=== PATIENT | male | born 1965 | race Two or more races ===

== ENCOUNTER → 2020-11-25 | Outpatient (CLI) | payer BC ==
[2020-11-25 13:17] LABS: Basophils # (auto) 0.1 10 ^3/uL (0-0.2); Basophils % (auto) 0.6 % (0.0-2.0); Eosinophils # (auto) 0.2 10 ^3/uL (0-0.8); Hematocrit 42.4 % (41.0-53.0); Hemoglobin 14.1 g/dL (13.5-17.5); Lymphocytes % (auto) 21.7 % (10.0-50.0); Mean Corpuscular Hemoglobin 30.7 pg (28.0-32.0); Mean Corpuscular Hgb Conc. 33.2 g/dL (32.0-36.0); Mean Corpuscular Volume 92.3 fL (80.0-100.0); Monocytes # (auto) 0.8 10 ^3/uL (0-1.3); Monocytes % (auto) 8.7 % (0.0-12.0); Nucleated Red Blood Cells % 0.1 %; Platelet Count (auto) 236 10^3/uL (140-450); Red Blood Cells 4.59 10^6/uL (4.5-5.90); Red Cell Distribution Width 15.5 % (11.8-14.3)
[2020-11-25 14:10] LABS: Calcium 9.1 mg/dL (8.5-10.1); Potassium 4.2 mmol/L (3.5-5.1)
[2020-11-25 14:17] LABS: Albumin 3.4 g/dL (3.4-5.0); BUN/Creatinine Ratio 19.2; Bilirubin, Total 0.9 mg/dL (0.2-1.0); Total Protein 7.6 g/dL (6.4-8.2); Uric Acid 5.4 mg/dL (3.5-7.2)
== END | disposition home or self-care (01) ==
LOC: LAB 12:25
PROVIDERS: ATTEND Physician Assistant
DX: I10 Essential (primary) hypertension (principal); E11.9 Type 2 diabetes mellitus without complications; I48.20 Chronic atrial fibrillation, unspecified; E78.49 Other hyperlipidemia; R35.1 Nocturia
CPT/HCPCS: 36415; 80053; 80061; 82043; 83036; 84153; 84550; 85025

== ENCOUNTER → 2021-03-03 | Outpatient (CLI) | payer BC | END | disposition home or self-care (01) | LOC: XYW 08:23 | PROVIDERS: ATTEND Internal Medicine | DX: I51.7 Cardiomegaly (principal); R00.1 Bradycardia, unspecified; I48.20 Chronic atrial fibrillation, unspecified | CPT/HCPCS: 93306 ==

== ENCOUNTER 2022-06-05 11:09 | Inpatient (IN) | payer BC ==
[~2022-06-05] VITALS: Ht 180.3 cm; Wt 166.3 kg
[2022-06-05 13:12] LABS: Basophils # (auto) 0.1 10 ^3/uL (0-0.2); Basophils % (auto) 0.8 % (0.0-2.0); Eosinophils # (auto) 0.3 10 ^3/uL (0-0.8); Eosinophils % (auto) 2.3 % (0.0-7.0); Hematocrit 44.7 % (41.0-53.0); Hemoglobin 14.7 g/dL (13.5-17.5); Lymphocytes # (auto) 1.6 10 ^3/uL (0.4-5.4); Lymphocytes % (auto) 14.2 % (10.0-50.0); Mean Corpuscular Hemoglobin 30.3 pg (28.0-32.0); Mean Corpuscular Hgb Conc. 32.9 g/dL (32.0-36.0); Mean Corpuscular Volume 92.2 fL (80.0-100.0); Monocytes # (auto) 1.2 10 ^3/uL (0-1.3); Monocytes % (auto) 10.4 % (0.0-12.0); Neutrophils # (auto) 8.2 10 ^3/uL (1.6-8.6); Neutrophils % (auto) 72.3 % (37.0-80.0); Nucleated Red Blood Cells % 0.1 %; Red Blood Cells 4.85 10^6/uL (4.5-5.90); Red Cell Distribution Width 15.9 % (11.8-14.3); White Blood Cell 11.3 10^3/uL (4.4-10.8)
[2022-06-05 13:29] LABS: Albumin 3.1 g/dL (3.4-5.0); BUN/Creatinine Ratio 14.3; Calcium 8.7 mg/dL (8.5-10.1); INR 1.56 (0.9-1.15); Partial Thromboplastin Time 37.4 sec (24.6-33.4); Potassium 4.4 mmol/L (3.5-5.1)
[2022-06-05 13:32] LABS: Bilirubin, Total 0.7 mg/dL (0.2-1.0); Total Protein 8.5 g/dL (6.4-8.2)
[2022-06-05] MEDS ORDERED: methylPREDNISolone SOD SUCC 125 MG/2 ML VL IV ONE (14:15)
[2022-06-05] MEDS ORDERED: cefTRIAXone 1GM/50ML D5W 50 ML IV ONE (14:15)
[2022-06-05] MEDS ORDERED: MORPHINE SULFATE INJ 2 MG/ml SYRG IV PRN ×2 (14:15)
[2022-06-05] MEDS ORDERED: ACETAMINOPHEN 325 MG TAB PO PRN (14:15)
[2022-06-05] MEDS ORDERED: NITROGLYCERIN 0.4 MG SL TAB SL PRN (14:15)
[2022-06-05] MEDS ORDERED: CLINDAMYCIN 600MG IV 50 ML IV ONE (14:15)
[2022-06-05] MEDS ORDERED: METOCLOPRAMIDE HCL 5MG/ml INJ 2ml VIAL IV ONE (14:45)
[2022-06-05] MEDS ORDERED: diphenhdrAMINE HCL 50 MG/1 ML VL IV PRN (14:45)
[2022-06-05] MEDS: SODIUM CHLORIDE 0.9% 1,000 ML IV SCH ×2 (14:45→18:25)
[2022-06-05] MEDS ORDERED: BUME1TAB3 PO (14:52)
[2022-06-05] MEDS ORDERED: RIV20T PO (14:52)
[2022-06-05] MEDS ORDERED: ATEN50TA PO (14:52)
[2022-06-05] MEDS ORDERED: AMLO-496 PO (14:52)
[2022-06-05] MEDS ORDERED: ESCI-34 PO (14:52)
[2022-06-05] MEDS ORDERED: ATOR40TA52 PO (14:52)
[2022-06-05] MEDS ORDERED: LISI-716 PO (14:52)
[2022-06-05 15:22] LABS: Cholesterol 104 mg/dL (< 200)
[2022-06-05 15:25] LABS: HDL Cholesterol 40 mg/dL (40-59); LDL Cholesterol 55 mg/dL (< 100); Triglycerides 116 mg/dL (< 150)
[2022-06-05] MEDS ORDERED: RIVAROXABAN 20 MG TAB PO SCH (18:00)
[2022-06-05] MEDS: BUMETANIDE 1 MG TAB PO SCH (18:25)
[2022-06-05 21:33] LABS: Urine Bacteria FEW /hpf (None Seen); Urine Blood TRACE /uL (Negative); Urine Hyaline Cast FEW /lpf (0 - 2); Urine Specific Gravity 1.008 (1.001-1.035); Urine WBC 1 /hpf (0 - 3)
[2022-06-05 22:00] VITALS: BP 130/61
[2022-06-05 22:00] LABS: Amphetamine Screen, Urine NEGATIVE (NEGATIVE); Barbiturate Scree,Urine NEGATIVE (NEGATIVE); Benzodiazephine Screen, Urine POSITIVE (NEGATIVE); Cannabinoid Screen, Urine NEGATIVE (NEGATIVE); Cocaine Screen, Urine NEGATIVE (NEGATIVE); Opiate Scree,Urine NEGATIVE (NEGATIVE); Phencyclidine Screen, Urine NEGATIVE (NEGATIVE)
[2022-06-05 22:34] VITALS: BP 130/61
[2022-06-05] MEDS: CLINDAMYCIN 600MG IV 50 ML IV SCH (23:38)
[2022-06-05] MEDS: ATORVASTATIN 20 MG TAB PO SCH (23:38)
[2022-06-05] MEDS: ATENOLOL 50 MG TAB PO SCH (23:45)
[2022-06-06] VITALS (7 sets, daily range): BP systolic 110–139; BP diastolic 52–78
[2022-06-06] MEDS: CLINDAMYCIN 600MG IV 50 ML IV SCH (05:10)
[2022-06-06] MEDS: BUMETANIDE 1 MG TAB PO SCH (05:35)
[2022-06-06 06:22] LABS: Basophils # (auto) 0 10 ^3/uL (0-0.2); Basophils % (auto) 0.1 % (0.0-2.0); Eosinophils # (auto) 0 10 ^3/uL (0-0.8); Hematocrit 44.3 % (41.0-53.0); Hemoglobin 14.7 g/dL (13.5-17.5); Lymphocytes # (auto) 0.6 10 ^3/uL (0.4-5.4); Mean Corpuscular Hemoglobin 30.8 pg (28.0-32.0); Mean Corpuscular Hgb Conc. 33.3 g/dL (32.0-36.0); Mean Corpuscular Volume 92.5 fL (80.0-100.0); Monocytes # (auto) 0.1 10 ^3/uL (0-1.3); Monocytes % (auto) 1.8 % (0.0-12.0); Neutrophils # (auto) 7.6 10 ^3/uL (1.6-8.6); Neutrophils % (auto) 91.1 % (37.0-80.0); Red Blood Cells 4.79 10^6/uL (4.5-5.90); Red Cell Distribution Width 15.8 % (11.8-14.3); White Blood Cell 8.3 10^3/uL (4.4-10.8)
[2022-06-06] MEDS: SODIUM CHLORIDE 0.9% 1,000 ML IV SCH (07:11)
[2022-06-06] MEDS ORDERED: cefTRIAXone 1GM/50ML D5W 50 ML IV SCH (09:00)
[2022-06-06] MEDS ORDERED: LISINOPRIL 10 MG TAB PO SCH (10:00)
[2022-06-06] MEDS ORDERED: PATIENTS OWN MEDICATION (Escitalopram Oxalate 1 TAB) PO SCH (10:00)
[2022-06-06] MEDS: ATENOLOL 50 MG TAB PO SCH ×2 (10:30→22:25)
[2022-06-06] MEDS: amLODIPine BESYLATE 5 MG TAB PO SCH (10:31)
[2022-06-06] MEDS: CITALOPRAM HYDROBR 20 MG TAB PO SCH (10:31)
[2022-06-06] MEDS ORDERED: DEXTROSE (50%) 50ML SYRG IV PRN (14:15)
[2022-06-06] MEDS ORDERED: VANCOMYCIN PER PHARMACY 0 MG IV SCH (14:15)
[2022-06-06] MEDS: VANCOMYCIN 1GM/250ML 250 ML IV SCH (15:13)
[2022-06-06] MEDS: HYDROcodone-ACET 5/325MG TAB PO PRN (15:40)
[2022-06-06] MEDS: ACCU-CHEK COMFORT CURVE STRIP VI SCH ×2 (17:45→22:25)
[2022-06-06] MEDS: InsuLIN REG 1unit/0.01ml Soln (100units/ml) SC SCH ×2 (17:50→22:26)
[2022-06-06] MEDS: ATORVASTATIN 20 MG TAB PO SCH (22:25)
[2022-06-07] MEDS: VANCOMYCIN 1GM/250ML 250 ML IV SCH ×2 (01:23→11:28)
[2022-06-07 03:08] LABS: Basophils # (auto) 0.1 10 ^3/uL (0-0.2); Basophils % (auto) 0.5 % (0.0-2.0); Eosinophils # (auto) 0 10 ^3/uL (0-0.8); Eosinophils % (auto) 0.1 % (0.0-7.0); Hematocrit 43.1 % (41.0-53.0); Hemoglobin 13.7 g/dL (13.5-17.5); Lymphocytes # (auto) 1.8 10 ^3/uL (0.4-5.4); Lymphocytes % (auto) 8.7 % (10.0-50.0); Mean Corpuscular Hemoglobin 29.6 pg (28.0-32.0); Mean Corpuscular Hgb Conc. 31.9 g/dL (32.0-36.0); Monocytes # (auto) 1.7 10 ^3/uL (0-1.3); Neutrophils # (auto) 17.1 10 ^3/uL (1.6-8.6); Neutrophils % (auto) 82.7 % (37.0-80.0); Red Blood Cells 4.63 10^6/uL (4.5-5.90); White Blood Cell 20.6 10^3/uL (4.4-10.8)
[2022-06-07 03:28] LABS: INR 1.3 (0.9-1.15); Partial Thromboplastin Time 27.2 sec (24.6-33.4)
[2022-06-07 05:00] VITALS: BP 117/69
[2022-06-07 06:19] LABS: BUN/Creatinine Ratio 31.3; Calcium 8.5 mg/dL (8.5-10.1); Potassium 4.8 mmol/L (3.5-5.1)
[2022-06-07] MEDS: InsuLIN REG 1unit/0.01ml Soln (100units/ml) SC SCH ×4 (06:19→22:00)
[2022-06-07] MEDS: ACCU-CHEK COMFORT CURVE STRIP VI SCH ×4 (06:19→22:01)
[2022-06-07 08:00] VITALS: BP 107/80
[2022-06-07] MEDS ORDERED: LIDOCAINE 1%HCL (LOCAL ANESTH) 10 ML MDV ONE (08:13)
[2022-06-07] MEDS ORDERED: BUPIVACAINE W/ EPINEPH 0.25% INJ 50ML MDV ONE (08:13)
[2022-06-07] MEDS ORDERED: fentaNYL CITRATE 100 MCG/2 ML VL ONE (08:28)
[2022-06-07] MEDS ORDERED: ceFAZolin 1GM/50ML 100 ML IV ONE (08:31)
[2022-06-07] MEDS ORDERED: SUCCINYLCHOLINE CHLORIDE 20 MG/ML 10ML VIAL IV ONE (08:35)
[2022-06-07] MEDS ORDERED: LIDOCAINE 1% (LOCAL ANESTH.) PF 5ml SDV ONE (08:38)
[2022-06-07] MEDS ORDERED: PROPOFOL 10 MG/ML 20 ML IV ONE (08:38)
[2022-06-07] MEDS ORDERED: ONDANSETRON HCL 4 MG/2 ML VIAL ONE (08:38)
[2022-06-07] MEDS ORDERED: MIDAZOLAM HCL 2MG/2ML 2ml VIAL (1mg/ml) ONE ×2 (08:38→08:46)
[2022-06-07] MEDS ORDERED: ONDANSETRON HCL 4 MG/2 ML VIAL IV PRN (09:30)
[2022-06-07] MEDS ORDERED: HYDROmorphone HCL 2 MG/ML VL/or syr IV PRN (09:30)
[2022-06-07] MEDS: ATENOLOL 50 MG TAB PO SCH ×2 (11:36→22:00)
[2022-06-07] MEDS: amLODIPine BESYLATE 5 MG TAB PO SCH (11:37)
[2022-06-07] MEDS: CITALOPRAM HYDROBR 20 MG TAB PO SCH (11:37)
[2022-06-07] MEDS ORDERED: cefTRIAXone 1GM/50ML D5W 50 ML IV ONE (11:45)
[2022-06-07 12:00] VITALS: BP 127/75
[2022-06-07 13:20] LABS: Hepatitis C Antibody Negative (Negative)
[2022-06-07 16:00] VITALS: BP 101/64
[2022-06-07 20:00] VITALS: BP 125/62
[2022-06-07 22:00] VITALS: BP 125/62
[2022-06-07] MEDS: ATORVASTATIN 20 MG TAB PO SCH (22:00)
[2022-06-08 05:23] VITALS: BP 134/95
[2022-06-08] MEDS: ACCU-CHEK COMFORT CURVE STRIP VI SCH ×4 (06:28→22:16)
[2022-06-08 06:31] LABS: Calcium 8.3 mg/dL (8.5-10.1)
[2022-06-08 06:32] LABS: BUN/Creatinine Ratio 27.3; Basophils # (auto) 0 10 ^3/uL (0-0.2); Basophils % (auto) 0.4 % (0.0-2.0); Eosinophils # (auto) 0.1 10 ^3/uL (0-0.8); Eosinophils % (auto) 0.6 % (0.0-7.0); Hematocrit 40.4 % (41.0-53.0); Hemoglobin 13.4 g/dL (13.5-17.5); Lymphocytes # (auto) 2.2 10 ^3/uL (0.4-5.4); Lymphocytes % (auto) 21.8 % (10.0-50.0); Mean Corpuscular Hgb Conc. 33.3 g/dL (32.0-36.0); Mean Corpuscular Volume 93.1 fL (80.0-100.0); Monocytes % (auto) 10.2 % (0.0-12.0); Neutrophils # (auto) 6.8 10 ^3/uL (1.6-8.6); Nucleated Red Blood Cells % 0.1 %; Red Blood Cells 4.34 10^6/uL (4.5-5.90); Red Cell Distribution Width 15.8 % (11.8-14.3); White Blood Cell 10.2 10^3/uL (4.4-10.8)
[2022-06-08] MEDS: InsuLIN REG 1unit/0.01ml Soln (100units/ml) SC SCH ×4 (06:32→22:13)
[2022-06-08 08:00] VITALS: BP 123/75
[2022-06-08 08:10] VITALS: BP 123/75
[2022-06-08] MEDS: ATENOLOL 50 MG TAB PO SCH (10:00)
[2022-06-08] MEDS: cefTRIAXone 1GM/50ML D5W 50 ML IV SCH (10:11)
[2022-06-08] MEDS: CITALOPRAM HYDROBR 20 MG TAB PO SCH (10:12)
[2022-06-08 12:00] VITALS: BP 113/62
[2022-06-08 16:00] VITALS: BP 105/55
[2022-06-08] MEDS: VANCOMYCIN 1GM/250ML 250 ML IV SCH (17:36)
[2022-06-08] MEDS: HYDROcodone-ACET 5/325MG TAB PO PRN (17:48)
[2022-06-08 22:00] VITALS: BP 127/76
[2022-06-08] MEDS: ATORVASTATIN 20 MG TAB PO SCH (22:14)
[2022-06-08] MEDS: ATENOLOL 25 MG TAB PO SCH (22:16)
[2022-06-09 05:00] VITALS: BP_SYST 74
[2022-06-09] MEDS: InsuLIN REG 1unit/0.01ml Soln (100units/ml) SC SCH ×4 (05:26→22:00)
[2022-06-09] MEDS: ACCU-CHEK COMFORT CURVE STRIP VI SCH ×4 (05:26→22:00)
[2022-06-09] MEDS: VANCOMYCIN 1GM/250ML 250 ML IV SCH (08:05)
[2022-06-09] MEDS: HYDROcodone-ACET 5/325MG TAB PO PRN (08:16)
[2022-06-09 08:34] VITALS: BP 126/75
[2022-06-09] MEDS: CITALOPRAM HYDROBR 20 MG TAB PO SCH (09:28)
[2022-06-09] MEDS: amLODIPine BESYLATE 5 MG TAB PO SCH (09:30)
[2022-06-09] MEDS: ATENOLOL 25 MG TAB PO SCH ×2 (09:31→22:00)
[2022-06-09] MEDS: cefTRIAXone 1GM/50ML D5W 50 ML IV SCH (11:52)
[2022-06-09 13:00] VITALS: BP 119/76
[2022-06-09 17:00] VITALS: BP 128/67
[2022-06-09 20:00] VITALS: BP 126/75
[2022-06-09 22:00] VITALS: BP 124/77
[2022-06-09] MEDS: ATORVASTATIN 20 MG TAB PO SCH (22:00)
[2022-06-10] MEDS: VANCOMYCIN 1GM/250ML 250 ML IV SCH ×2 (01:37→14:10)
[2022-06-10 05:00] VITALS: BP 144/79
[2022-06-10] MEDS: InsuLIN REG 1unit/0.01ml Soln (100units/ml) SC SCH ×3 (06:15→17:00)
[2022-06-10] MEDS: ACCU-CHEK COMFORT CURVE STRIP VI SCH ×3 (06:16→17:23)
[2022-06-10 09:00] VITALS: BP 150/81
[2022-06-10] MEDS: amLODIPine BESYLATE 5 MG TAB PO SCH (10:00)
[2022-06-10] MEDS: ATENOLOL 25 MG TAB PO SCH (10:00)
[2022-06-10] MEDS: CITALOPRAM HYDROBR 20 MG TAB PO SCH (10:00)
[2022-06-10] MEDS: cefTRIAXone 1GM/50ML D5W 50 ML IV SCH (11:23)
[2022-06-10] MEDS ORDERED: ALPR2TAB2 PO (11:41)
[2022-06-10] MEDS ORDERED: IOHEXOL 350 MG/ML 100ML IJ ONE (12:59)
[2022-06-10] MEDS ORDERED: ASPirin 81 mg TAB PO ONE ×2 (15:00)
[2022-06-10] MEDS ORDERED: SODIUM CHLORIDE 0.9% 1,000 ML IV SCH (15:45)
[2022-06-10] MEDS ORDERED: ASPirin 81 mg TAB PO SCH (16:00)
[2022-06-10] MEDS ORDERED: LABETALOL HCL 5 MG/ML 4ML SYRINGE IV PRN (16:15)
[2022-06-10] MEDS ORDERED: hydrALAZINE HCL 20 MG/ML VL IV PRN (16:45)
[2022-06-10 17:00] VITALS: BP 148/71
[2022-06-11] MEDS ORDERED: VANCOMYCIN 1GM/250ML 250 ML IV SCH (02:00)
[2022-06-11] MEDS ORDERED: ASPirin 81 mg TAB PO SCH (10:00)
== END 2022-06-10 21:18 | disposition short-term general hospital (02) | DRG 871 ==
LOC: ER 11:09 → OVERFLOW 14:43 → WEST WING 22:00 → TELE-WESTW 06-10 07:43
PROVIDERS: ADMIT Registered Nurse; ATTEND Internal Medicine
PROC: 0HB7XZX Excision of Abdomen Skin, External Approach, Diagnostic (ICD-10-PCS; 2022-06-07)
PROC: 0HB7XZX Excision of Abdomen Skin, External Approach, Diagnostic (ICD-10-PCS; principal; 2022-06-07 08:34)
DX: A41.9 Sepsis, unspecified organism (principal); I63.511 Cerebral infarction due to unspecified occlusion or stenosis of right middle cerebral artery; D69.0 Allergic purpura; D68.69 Other thrombophilia; R41.4 Neurologic neglect syndrome; G81.94 Hemiplegia, unspecified affecting left nondominant side; L03.116 Cellulitis of left lower limb; L03.115 Cellulitis of right lower limb; Z68.43 Body mass index [BMI] 50.0-59.9, adult; E78.5 Hyperlipidemia, unspecified; E66.01 Morbid (severe) obesity due to excess calories; I48.91 Unspecified atrial fibrillation; E11.9 Type 2 diabetes mellitus without complications; Z20.822 Contact with and (suspected) exposure to COVID-19; I10 Essential (primary) hypertension; H53.462 Homonymous bilateral field defects, left side; F17.200 Nicotine dependence, unspecified, uncomplicated; G47.30 Sleep apnea, unspecified; Z82.49 Family history of ischemic heart disease and other diseases of the circulatory system; Z79.899 Other long term (current) drug therapy; Z79.82 Long term (current) use of aspirin; Z82.3 Family history of stroke; Z83.3 Family history of diabetes mellitus; Z79.01 Long term (current) use of anticoagulants
CPT/HCPCS: 36415; 70450; 70496; 71045; 73020; 73090; 73560; 80048; 80053; 80061; 80202; 80307; 81001; 82150; 82565; 82784; 82962; 83036; 83520; 83690; 84443; 85025; 85610; 85652; 85730; 86141; 86160; 86256; 86704; 86803; 86850; 86900; 86901; 87040; 87077; 87186; 87340; 87426; 96365; 96366; 96368; 96375; G0378; J0330; J0690; J0696; J1815; J2001; J2250; J2405; J2704; J3490

== ENCOUNTER 2022-06-20 16:40 | Emergency (ER) | payer BC ==
[~2022-06-20] VITALS: Ht 177.8 cm; Wt 136.0 kg
[~2022-06-20 16:40] MED LIST: ALPR2TAB2 PO; AMLO-496 PO; ATEN50TA PO; ATOR40TA52 PO; BUME1TAB3 PO; ESCI-34 PO; LISI-716 PO; RIV20T PO
[2022-06-20 18:20] LABS: Basophils # (auto) 0.1 10 ^3/uL (0-0.2); Basophils % (auto) 0.4 % (0.0-2.0); Eosinophils # (auto) 0.1 10 ^3/uL (0-0.8); Eosinophils % (auto) 0.5 % (0.0-7.0); Hematocrit 45.8 % (41.0-53.0); Hemoglobin 14.8 g/dL (13.5-17.5); Lymphocytes # (auto) 2.1 10 ^3/uL (0.4-5.4); Mean Corpuscular Hemoglobin 30.3 pg (28.0-32.0); Mean Corpuscular Hgb Conc. 32.4 g/dL (32.0-36.0); Mean Corpuscular Volume 93.5 fL (80.0-100.0); Monocytes # (auto) 1.3 10 ^3/uL (0-1.3); Monocytes % (auto) 10.4 % (0.0-12.0); Neutrophils % (auto) 71.7 % (37.0-80.0); Nucleated Red Blood Cells % 0.1 %; Red Cell Distribution Width 15.7 % (11.8-14.3); White Blood Cell 12.6 10^3/uL (4.4-10.8)
[2022-06-20 18:38] LABS: Albumin 2.9 g/dL (3.4-5.0); Calcium 9.3 mg/dL (8.5-10.1); Potassium 3.9 mmol/L (3.5-5.1)
[2022-06-20 18:43] LABS: BUN/Creatinine Ratio 23.9; Total Protein 7.4 g/dL (6.4-8.2)
[2022-06-21 15:23] VITALS: BP 165/95
== END 2022-06-21 19:08 | disposition home or self-care (01) ==
LOC: ER 16:40 → EDBD 16:40 → ER 06-21 15:43
DX: I10 Essential (primary) hypertension (principal); I48.91 Unspecified atrial fibrillation; E11.9 Type 2 diabetes mellitus without complications; M25.532 Pain in left wrist; M25.512 Pain in left shoulder; Z79.899 Other long term (current) drug therapy
CPT/HCPCS: 36415; 71045; 73030; 73100; 80053; 84484; 85025; 93005; 93971

== ENCOUNTER 2022-06-25 11:06 | Inpatient (IN) | payer BC ==
[~2022-06-25] VITALS: Ht 172.7 cm; Wt 151.6 kg
[2022-06-25] MEDS ORDERED: SODIUM CHLORIDE 0.9% 500 ML IV ONE (11:30)
[2022-06-25 11:59] LABS: Basophils # (auto) 0.2 10 ^3/uL (0-0.2); Basophils % (auto) 1.2 % (0.0-2.0); Eosinophils # (auto) 0.7 10 ^3/uL (0-0.8); Hematocrit 40.7 % (41.0-53.0); Hemoglobin 13.2 g/dL (13.5-17.5); Mean Corpuscular Hgb Conc. 32.5 g/dL (32.0-36.0); Mean Corpuscular Volume 92.3 fL (80.0-100.0); Monocytes # (auto) 1.9 10 ^3/uL (0-1.3); Monocytes % (auto) 14.1 % (0.0-12.0); Neutrophils # (auto) 8.5 10 ^3/uL (1.6-8.6); Neutrophils % (auto) 64.7 % (37.0-80.0); Red Blood Cells 4.41 10^6/uL (4.5-5.90); Red Cell Distribution Width 15.5 % (11.8-14.3); White Blood Cell 13.2 10^3/uL (4.4-10.8)
[2022-06-25 12:35] LABS: Albumin 2.2 g/dL (3.4-5.0); BUN/Creatinine Ratio 17.3; Bilirubin, Total 0.9 mg/dL (0.2-1.0); Calcium 8.7 mg/dL (8.5-10.1); Magnesium 2.1 mg/dL (1.6-2.6); Potassium 4.1 mmol/L (3.5-5.1); Total Protein 6.7 g/dL (6.4-8.2)
[2022-06-26 20:16] LABS: Urine Bacteria NONE SEEN /hpf (None Seen); Urine Blood 2+ /uL (Negative); Urine Mucus FEW (None Seen); Urine WBC 20 /hpf (0 - 3)
[2022-06-27] MEDS ORDERED: HYDROcodone-ACET 5/325MG TAB PO PRN (17:15)
[2022-06-27] MEDS ORDERED: NITROGLYCERIN 0.4 MG SL TAB SL PRN (17:15)
[2022-06-27] MEDS ORDERED: DEXTROSE (50%) 50ML SYRG IV PRN (17:15)
[2022-06-27] MEDS ORDERED: MORPHINE SULFATE INJ 2 MG/ml SYRG IV PRN ×2 (17:15)
[2022-06-27] MEDS ORDERED: ONDANSETRON HCL 4 MG/2 ML VIAL IV PRN (17:15)
[2022-06-27] MEDS ORDERED: ACETAMINOPHEN 500 MG TAB PO PRN (17:15)
[2022-06-27 22:00] VITALS: BP 114/70
[2022-06-27] MEDS ORDERED: ATORVASTATIN 20 MG TAB PO SCH (22:00)
[2022-06-27] MEDS: ACCU-CHEK COMFORT CURVE STRIP VI SCH (22:12)
[2022-06-27] MEDS: InsuLIN REG 1unit/0.01ml Soln (100units/ml) SC SCH (22:12)
[2022-06-27] MEDS: ATENOLOL 25 MG TAB PO SCH (22:14)
[2022-06-28] VITALS (8 sets, daily range): BP systolic 98–163; BP diastolic 55–94
[2022-06-28] MEDS: InsuLIN REG 1unit/0.01ml Soln (100units/ml) SC SCH ×2 (06:26→11:55)
[2022-06-28] MEDS: ACCU-CHEK COMFORT CURVE STRIP VI SCH ×2 (06:26→11:55)
[2022-06-28 06:38] LABS: Basophils # (auto) 0.1 10 ^3/uL (0-0.2); Eosinophils # (auto) 0.3 10 ^3/uL (0-0.8); Eosinophils % (auto) 2.8 % (0.0-7.0); Hematocrit 43.8 % (41.0-53.0); Hemoglobin 13.8 g/dL (13.5-17.5); Lymphocytes # (auto) 1.8 10 ^3/uL (0.4-5.4); Lymphocytes % (auto) 15.2 % (10.0-50.0); Mean Corpuscular Hemoglobin 29.1 pg (28.0-32.0); Mean Corpuscular Hgb Conc. 31.6 g/dL (32.0-36.0); Monocytes # (auto) 1.4 10 ^3/uL (0-1.3); Monocytes % (auto) 11.9 % (0.0-12.0); Neutrophils # (auto) 8.3 10 ^3/uL (1.6-8.6); Neutrophils % (auto) 69.1 % (37.0-80.0); Red Blood Cells 4.76 10^6/uL (4.5-5.90); Red Cell Distribution Width 15.6 % (11.8-14.3); White Blood Cell 11.9 10^3/uL (4.4-10.8)
[2022-06-28 07:14] LABS: Albumin 2.5 g/dL (3.4-5.0); Potassium 4.2 mmol/L (3.5-5.1)
[2022-06-28 07:17] LABS: BUN/Creatinine Ratio 17.7
[2022-06-28 07:20] LABS: Bilirubin, Total 0.9 mg/dL (0.2-1.0); Total Protein 7.4 g/dL (6.4-8.2)
[2022-06-28] MEDS ORDERED: ASPirin 81 mg TAB PO SCH (10:00)
[2022-06-28] MEDS ORDERED: LISINOPRIL 10 MG TAB PO SCH (10:00)
[2022-06-28] MEDS: ATENOLOL 25 MG TAB PO SCH (10:29)
[2022-06-28] MEDS ORDERED: CITALOPRAM HYDROBR 20 MG TAB PO ONE (11:15)
[2022-06-28] MEDS ORDERED: cefTRIAXone 1GM/50ML D5W 50 ML IV ONE (11:15)
[2022-06-28] MEDS ORDERED: APIXABAN 5 MG TAB PO ONE (11:15)
[2022-06-28] MEDS ORDERED: APIXABAN 5 MG TAB PO SCH (22:00)
[2022-06-29] MEDS ORDERED: cefTRIAXone 1GM/50ML D5W 50 ML IV SCH (09:00)
[2022-06-29] MEDS ORDERED: amLODIPine BESYLATE 5 MG TAB PO SCH (10:00)
[2022-06-29] MEDS ORDERED: CITALOPRAM HYDROBR 20 MG TAB PO SCH (10:00)
== END 2022-06-28 17:22 | DRG 948 ==
LOC: EDBD 11:06 → ER 11:06 → OVERFLOW 06-27 17:08 → EAST 06-28 08:30
PROVIDERS: ADMIT Nurse Practitioner Acute Care; ATTEND Internal Medicine
PROC: 5A09357 Assistance with Respiratory Ventilation, Less than 24 Consecutive Hours, Continuous Positive Airway Pressure (ICD-10-PCS; principal; 2022-06-27)
DX: R53.1 Weakness (principal); I69.354 Hemiplegia and hemiparesis following cerebral infarction affecting left non-dominant side; D68.69 Other thrombophilia; Z68.43 Body mass index [BMI] 50.0-59.9, adult; I50.32 Chronic diastolic (congestive) heart failure; N39.0 Urinary tract infection, site not specified; R45.851 Suicidal ideations; E11.9 Type 2 diabetes mellitus without complications; E66.01 Morbid (severe) obesity due to excess calories; G47.30 Sleep apnea, unspecified; F32.A Depression, unspecified; E78.5 Hyperlipidemia, unspecified; I11.0 Hypertensive heart disease with heart failure; I48.91 Unspecified atrial fibrillation; Z79.899 Other long term (current) drug therapy; Z82.3 Family history of stroke; Z82.49 Family history of ischemic heart disease and other diseases of the circulatory system; Z83.3 Family history of diabetes mellitus; Z79.84 Long term (current) use of oral hypoglycemic drugs
CPT/HCPCS: 36415; 70450; 71045; 80053; 81001; 83735; 85025; 87426; 93005; 94660; 96360; 97163; G0378; J0696; J1815

== ENCOUNTER 2022-07-19 05:31 | Emergency (ER) | payer BC ==
[~2022-07-19] VITALS: Ht 172.7 cm; Wt 163.0 kg
[2022-07-19 05:31] VITALS: BP 122/86
[2022-07-19 06:41] LABS: Basophils # (auto) 0.1 10 ^3/uL (0-0.2); Basophils % (auto) 0.6 % (0.0-2.0); Eosinophils # (auto) 0.4 10 ^3/uL (0-0.8); Eosinophils % (auto) 3.6 % (0.0-7.0); Hemoglobin 15.4 g/dL (13.5-17.5); Lymphocytes # (auto) 1.8 10 ^3/uL (0.4-5.4); Lymphocytes % (auto) 16.1 % (10.0-50.0); Mean Corpuscular Hgb Conc. 32.1 g/dL (32.0-36.0); Mean Corpuscular Volume 90.3 fL (80.0-100.0); Monocytes # (auto) 1.3 10 ^3/uL (0-1.3); Monocytes % (auto) 11.4 % (0.0-12.0); Neutrophils # (auto) 7.7 10 ^3/uL (1.6-8.6); Neutrophils % (auto) 68.3 % (37.0-80.0); Nucleated Red Blood Cells % 0.1 %; Red Blood Cells 5.32 10^6/uL (4.5-5.90); Red Cell Distribution Width 15.1 % (11.8-14.3); White Blood Cell 11.2 10^3/uL (4.4-10.8)
[2022-07-19 07:00] LABS: Albumin 2.8 g/dL (3.4-5.0); BUN/Creatinine Ratio 11.8; Calcium 9.1 mg/dL (8.5-10.1); Potassium 4.1 mmol/L (3.5-5.1)
[2022-07-19 07:02] LABS: Bilirubin, Total 0.6 mg/dL (0.2-1.0); Total Protein 7.1 g/dL (6.4-8.2)
[2022-07-19] MEDS ORDERED: SODIUM CHLORIDE 0.9% 500 ML IV ONE (11:15)
== END 2022-07-19 17:34 | disposition left against medical advice (07) ==
LOC: ER 05:31 → EDSEX 05:31 → EDBD 05:31 → ER 17:34
DX: R53.1 Weakness (principal); M25.512 Pain in left shoulder; I10 Essential (primary) hypertension; I48.91 Unspecified atrial fibrillation; E78.5 Hyperlipidemia, unspecified; E11.9 Type 2 diabetes mellitus without complications; Z79.899 Other long term (current) drug therapy; Z20.822 Contact with and (suspected) exposure to COVID-19
CPT/HCPCS: 36415; 70450; 73030; 80053; 83605; 83880; 84484; 85025; 87040; 87426; 93005

== ENCOUNTER 2022-09-29 14:05 | Inpatient (IN) | payer BC, MEDICAID ==
[~2022-09-29] VITALS: Ht 167.6 cm; Wt 136.0 kg
[~2022-09-29 14:05] MED LIST changes: -AMLO-496 PO; +APIX5TAB PO; +ATE50T PO; -ATEN50TA PO; +ATOR20TA50 PO; -ATOR40TA52 PO; -BUME1TAB3 PO; +CEFD300C2 PO; +EMPA1TAB PO; -RIV20T PO
[2022-09-29] MEDS ORDERED: SODIUM CHLORIDE 0.9% 1,000 ML IV ONE (14:30)
[2022-09-29] MEDS ORDERED: LORazepam 2MG/ML-1ML VIAL IV ONE (14:45)
[2022-09-29 15:07] LABS: Basophils # (auto) 0.1 10 ^3/uL (0-0.2); Basophils % (auto) 1.1 % (0.0-2.0); Eosinophils # (auto) 0 10 ^3/uL (0-0.8); Eosinophils % (auto) 0.3 % (0.0-7.0); Hematocrit 36.1 % (41.0-53.0); Lymphocytes # (auto) 1.2 10 ^3/uL (0.4-5.4); Lymphocytes % (auto) 10.5 % (10.0-50.0); Mean Corpuscular Hemoglobin 29.2 pg (28.0-32.0); Mean Corpuscular Hgb Conc. 33.3 g/dL (32.0-36.0); Mean Corpuscular Volume 87.5 fL (80.0-100.0); Monocytes # (auto) 0.6 10 ^3/uL (0-1.3); Monocytes % (auto) 5.5 % (0.0-12.0); Neutrophils # (auto) 9.6 10 ^3/uL (1.6-8.6); Neutrophils % (auto) 82.6 % (37.0-80.0); Nucleated Red Blood Cells % 0.1 %; Red Blood Cells 4.13 10^6/uL (4.5-5.90); Red Cell Distribution Width 16.3 % (11.8-14.3); White Blood Cell 11.7 10^3/uL (4.4-10.8)
[2022-09-29 15:21] LABS: Albumin 2.8 g/dL (3.4-5.0); BUN/Creatinine Ratio 8.2
[2022-09-29 15:24] LABS: Bilirubin, Total 0.6 mg/dL (0.2-1.0); Total Protein 6.5 g/dL (6.4-8.2)
[2022-09-29 15:29] LABS: Potassium 2.7 mmol/L (3.5-5.1)
[2022-09-29] MEDS ORDERED: POTASSIUM EFFERVESENT TAB 25 MEQ PO ONE (15:45)
[2022-09-29 20:53] LABS: Urine Bacteria MANY /hpf (None Seen); Urine Blood 3+ /uL (Negative); Urine Mucus FEW (None Seen); Urine Specific Gravity 1.013 (1.001-1.035); Urine WBC 95 /hpf (0 - 3)
[2022-09-29] MEDS ORDERED: DOCUSATE SOD 100 MG CAP PO PRN (22:00)
[2022-09-29] MEDS ORDERED: cefTRIAXone 1GM/50ML D5W 50 ML IV ONE (22:00)
[2022-09-29] MEDS ORDERED: hydrALAZINE HCL 20 MG/ML VL IV PRN (22:00)
[2022-09-29] MEDS ORDERED: ONDANSETRON HCL 4 MG/2 ML VIAL IV PRN (22:00)
[2022-09-29] MEDS ORDERED: ACETAMINOPHEN 325 MG TAB PO PRN (22:00)
[2022-09-29] MEDS ORDERED: DEXTROSE (50%) 50ML SYRG IV PRN (22:00)
[2022-09-29] MEDS ORDERED: HYDROcodone-ACET 5/325MG TAB PO PRN (22:00)
[2022-09-29] MEDS ORDERED: MORPHINE SULFATE INJ 2 MG/ml SYRG IV PRN (22:30)
[2022-09-29] MEDS ORDERED: NITROGLYCERIN 0.4 MG SL TAB SL PRN (22:30)
[2022-09-29] MEDS: SODIUM CHLOR 0.9% PF (SALINE LOCK) 10ML VIAL/SYR IV SCH (23:26)
[2022-09-29] MEDS: InsuLIN REG 1unit/0.01ml Soln (100units/ml) SC SCH (23:32)
[2022-09-29] MEDS: ACCU-CHEK COMFORT CURVE STRIP VI SCH (23:32)
[2022-09-29] MEDS: ATORVASTATIN 20 MG TAB PO SCH (23:34)
[2022-09-29] MEDS: APIXABAN 5 MG TAB PO SCH (23:34)
[2022-09-29] MEDS: FAMOTIDINE (10MG/ML) 2ML VL IV SCH (23:34)
[2022-09-30] MEDS: SODIUM CHLOR 0.9% PF (SALINE LOCK) 10ML VIAL/SYR IV SCH ×3 (05:57→23:17)
[2022-09-30] MEDS: ALPRAZolam 0.5 MG TAB PO PRN ×2 (05:57→16:17)
[2022-09-30 06:01] LABS: Basophils # (auto) 0 10 ^3/uL (0-0.2); Basophils % (auto) 0.4 % (0.0-2.0); Eosinophils # (auto) 0.1 10 ^3/uL (0-0.8); Eosinophils % (auto) 0.6 % (0.0-7.0); Hemoglobin 11.5 g/dL (13.5-17.5); Lymphocytes # (auto) 1.3 10 ^3/uL (0.4-5.4); Lymphocytes % (auto) 11.7 % (10.0-50.0); Mean Corpuscular Hemoglobin 30.4 pg (28.0-32.0); Mean Corpuscular Hgb Conc. 34.7 g/dL (32.0-36.0); Mean Corpuscular Volume 87.6 fL (80.0-100.0); Monocytes # (auto) 0.8 10 ^3/uL (0-1.3); Monocytes % (auto) 7.8 % (0.0-12.0); Neutrophils # (auto) 8.6 10 ^3/uL (1.6-8.6); Neutrophils % (auto) 79.5 % (37.0-80.0); Red Blood Cells 3.77 10^6/uL (4.5-5.90); Red Cell Distribution Width 16.4 % (11.8-14.3); White Blood Cell 10.9 10^3/uL (4.4-10.8)
[2022-09-30 06:10] LABS: Albumin 2.6 g/dL (3.4-5.0); Calcium 7.9 mg/dL (8.5-10.1)
[2022-09-30 06:15] LABS: BUN/Creatinine Ratio 8.1; Bilirubin, Total 0.6 mg/dL (0.2-1.0); Total Protein 6.8 g/dL (6.4-8.2)
[2022-09-30 06:26] LABS: Potassium 2.6 mmol/L (3.5-5.1)
[2022-09-30] MEDS: InsuLIN REG 1unit/0.01ml Soln (100units/ml) SC SCH ×4 (06:50→22:00)
[2022-09-30] MEDS: ACCU-CHEK COMFORT CURVE STRIP VI SCH ×4 (06:50→23:17)
[2022-09-30] MEDS: POTASSIUM CHL 20MEQ/100ML 100 ML IV SCH ×4 (06:58→12:22)
[2022-09-30] MEDS: APIXABAN 5 MG TAB PO SCH ×2 (10:10→23:17)
[2022-09-30] MEDS: FAMOTIDINE (10MG/ML) 2ML VL IV SCH ×2 (10:10→23:17)
[2022-09-30] MEDS ORDERED: POTASSIUM EFFERVESENT TAB 25 MEQ PO ONE (13:30)
[2022-09-30] MEDS: MAGNESIUM SULFATE 1GM/100ML 100 ML IV SCH ×2 (15:46→16:19)
[2022-09-30 16:36] LABS: Protein, Urine 102.1 mg/dL (0.0-11.9)
[2022-09-30 22:41] VITALS: BP 120/74
[2022-09-30 22:45] VITALS: BP 120/74
[2022-09-30] MEDS: cefTRIAXone 1GM/50ML D5W 50 ML IV SCH (23:16)
[2022-09-30] MEDS: ATORVASTATIN 20 MG TAB PO SCH (23:17)
[2022-10-01 05:00] VITALS: BP 141/85
[2022-10-01] MEDS: ACCU-CHEK COMFORT CURVE STRIP VI SCH ×4 (06:21→22:39)
[2022-10-01] MEDS: InsuLIN REG 1unit/0.01ml Soln (100units/ml) SC SCH ×5 (06:21→22:00)
[2022-10-01] MEDS: SODIUM CHLOR 0.9% PF (SALINE LOCK) 10ML VIAL/SYR IV SCH ×3 (06:21→22:39)
[2022-10-01 08:30] VITALS: BP 129/85
[2022-10-01] MEDS: ALPRAZolam 0.5 MG TAB PO PRN (09:36)
[2022-10-01 12:33] VITALS: BP 135/92
[2022-10-01] MEDS: APIXABAN 5 MG TAB PO SCH ×2 (13:07→22:39)
[2022-10-01] MEDS ORDERED: DEXTROSE (50%) 50ML SYRG IV PRN (14:00)
[2022-10-01 15:40] LABS: Potassium 3.1 mmol/L (3.5-5.1)
[2022-10-01 15:44] LABS: Magnesium 2.1 mg/dL (1.6-2.6)
[2022-10-01 16:35] VITALS: BP 145/97
[2022-10-01] MEDS ORDERED: POTASSIUM CHL 20 Meq TABLET PO ONE (16:45)
[2022-10-01 18:00] VITALS: BP 145/97
[2022-10-01] MEDS: ATORVASTATIN 20 MG TAB PO SCH (22:39)
[2022-10-01] MEDS: cefTRIAXone 1GM/50ML D5W 50 ML IV SCH (22:40)
[2022-10-02 05:27] VITALS: BP 142/98
[2022-10-02 06:03] LABS: Basophils # (auto) 0.1 10 ^3/uL (0-0.2); Basophils % (auto) 0.5 % (0.0-2.0); Eosinophils # (auto) 0.4 10 ^3/uL (0-0.8); Eosinophils % (auto) 3.5 % (0.0-7.0); Hemoglobin 10.1 g/dL (13.5-17.5); Lymphocytes % (auto) 17.1 % (10.0-50.0); Mean Corpuscular Hemoglobin 29.6 pg (28.0-32.0); Mean Corpuscular Hgb Conc. 33.5 g/dL (32.0-36.0); Mean Corpuscular Volume 88.5 fL (80.0-100.0); Monocytes # (auto) 0.9 10 ^3/uL (0-1.3); Monocytes % (auto) 7.9 % (0.0-12.0); Neutrophils # (auto) 8.2 10 ^3/uL (1.6-8.6); Red Blood Cells 3.39 10^6/uL (4.5-5.90); Red Cell Distribution Width 16.5 % (11.8-14.3); White Blood Cell 11.5 10^3/uL (4.4-10.8)
[2022-10-02] MEDS: ACCU-CHEK COMFORT CURVE STRIP VI SCH ×4 (06:05→21:51)
[2022-10-02] MEDS: InsuLIN REG 1unit/0.01ml Soln (100units/ml) SC SCH ×5 (06:06→22:00)
[2022-10-02] MEDS: SODIUM CHLOR 0.9% PF (SALINE LOCK) 10ML VIAL/SYR IV SCH ×3 (06:06→21:50)
[2022-10-02 06:30] LABS: Calcium 8.1 mg/dL (8.5-10.1)
[2022-10-02 07:31] LABS: Potassium 3.4 mmol/L (3.5-5.1)
[2022-10-02 08:51] VITALS: BP 175/117
[2022-10-02] MEDS: CITALOPRAM HYDROBR 20 MG TAB PO SCH (09:27)
[2022-10-02] MEDS: SPIRONOLACTONE 25 MG TAB PO SCH (09:27)
[2022-10-02] MEDS: APIXABAN 5 MG TAB PO SCH ×2 (09:27→21:50)
[2022-10-02] MEDS: PANTOPRAZOLE 40 MG TAB PO SCH (09:27)
[2022-10-02 09:29] VITALS: BP 149/98
[2022-10-02] MEDS ORDERED: ATENOLOL 50 MG TAB PO ONE (11:00)
[2022-10-02] MEDS ORDERED: POTASSIUM CHL 20 Meq TABLET PO ONE (11:00)
[2022-10-02] MEDS: ALPRAZolam 0.5 MG TAB PO PRN (12:09)
[2022-10-02 13:00] VITALS: BP 142/83
[2022-10-02] MEDS ORDERED: ERTAPENEM SOD INJ 1 GM in SODIUM CHL 0.9% 50 ML IV ONE (14:15)
[2022-10-02] MEDS: ATORVASTATIN 20 MG TAB PO SCH (21:50)
[2022-10-02 22:00] VITALS: BP 145/19
[2022-10-03 05:00] VITALS: BP 153/96
[2022-10-03] MEDS: SODIUM CHLOR 0.9% PF (SALINE LOCK) 10ML VIAL/SYR IV SCH ×2 (06:07→13:05)
[2022-10-03] MEDS: ACCU-CHEK COMFORT CURVE STRIP VI SCH ×3 (06:20→17:00)
[2022-10-03] MEDS: InsuLIN REG 1unit/0.01ml Soln (100units/ml) SC SCH ×3 (06:21→17:00)
[2022-10-03 07:05] LABS: Basophils # (auto) 0.1 10 ^3/uL (0-0.2); Basophils % (auto) 0.7 % (0.0-2.0); Eosinophils # (auto) 0.4 10 ^3/uL (0-0.8); Eosinophils % (auto) 4.8 % (0.0-7.0); Hematocrit 31.3 % (41.0-53.0); Hemoglobin 10.9 g/dL (13.5-17.5); Lymphocytes # (auto) 1.6 10 ^3/uL (0.4-5.4); Lymphocytes % (auto) 17.6 % (10.0-50.0); Mean Corpuscular Hemoglobin 30.8 pg (28.0-32.0); Mean Corpuscular Hgb Conc. 34.9 g/dL (32.0-36.0); Mean Corpuscular Volume 88.1 fL (80.0-100.0); Monocytes # (auto) 0.7 10 ^3/uL (0-1.3); Monocytes % (auto) 7.1 % (0.0-12.0); Neutrophils # (auto) 6.5 10 ^3/uL (1.6-8.6); Neutrophils % (auto) 69.8 % (37.0-80.0); Nucleated Red Blood Cells % 0.1 %; Red Blood Cells 3.55 10^6/uL (4.5-5.90); Red Cell Distribution Width 16.8 % (11.8-14.3); White Blood Cell 9.2 10^3/uL (4.4-10.8)
[2022-10-03 07:17] LABS: Calcium 8.4 mg/dL (8.5-10.1); Potassium 3.7 mmol/L (3.5-5.1)
[2022-10-03 09:10] VITALS: BP 156/99
[2022-10-03] MEDS: SPIRONOLACTONE 25 MG TAB PO SCH (09:47)
[2022-10-03] MEDS: CITALOPRAM HYDROBR 20 MG TAB PO SCH (09:47)
[2022-10-03] MEDS: APIXABAN 5 MG TAB PO SCH (09:48)
[2022-10-03] MEDS: PANTOPRAZOLE 40 MG TAB PO SCH (09:48)
[2022-10-03] MEDS ORDERED: ERTAPENEM SOD INJ 1 GM in SODIUM CHL 0.9% 50 ML IV SCH (10:00)
[2022-10-03] MEDS ORDERED: ATENOLOL 50 MG TAB PO SCH (10:00)
[2022-10-03] MEDS ORDERED: SPIR25TA PO (10:12)
[2022-10-03 12:49] VITALS: BP 161/86
[2022-10-03] MEDS: ALPRAZolam 0.5 MG TAB PO PRN (13:33)
[2022-10-03 16:27] VITALS: BP 161/96
[2022-10-03 18:10] VITALS: BP 156/99
== END 2022-10-03 19:30 | disposition home or self-care (01) | DRG 871 ==
LOC: EDUNIT# 14:05 → ER 14:05 → EDBD 14:05 → TELE 22:29 → TELE-WESTW 09-30 21:45
PROVIDERS: ADMIT Nurse Practitioner Family; ATTEND Internal Medicine
PROC: 05HB33Z Insertion of Infusion Device into Right Basilic Vein, Percutaneous Approach (ICD-10-PCS; principal; 2022-10-03)
PROC: B54MZZA Ultrasonography of Right Upper Extremity Veins, Guidance (ICD-10-PCS; 2022-10-03)
DX: A41.51 Sepsis due to Escherichia coli [E. coli] (principal); G93.41 Metabolic encephalopathy; D68.69 Other thrombophilia; N39.0 Urinary tract infection, site not specified; I69.354 Hemiplegia and hemiparesis following cerebral infarction affecting left non-dominant side; I50.32 Chronic diastolic (congestive) heart failure; E87.6 Hypokalemia; D63.8 Anemia in other chronic diseases classified elsewhere; F41.9 Anxiety disorder, unspecified; Z95.0 Presence of cardiac pacemaker; E11.9 Type 2 diabetes mellitus without complications; E88.09 Other disorders of plasma-protein metabolism, not elsewhere classified; Z20.822 Contact with and (suspected) exposure to COVID-19; I49.5 Sick sinus syndrome; I48.91 Unspecified atrial fibrillation; E66.01 Morbid (severe) obesity due to excess calories; G47.30 Sleep apnea, unspecified; I11.0 Hypertensive heart disease with heart failure; R56.9 Unspecified convulsions; E78.5 Hyperlipidemia, unspecified; S81.802A Unspecified open wound, left lower leg, initial encounter; X58.XXXA Exposure to other specified factors, initial encounter; Y93.89 Activity, other specified; Y92.89 Other specified places as the place of occurrence of the external cause; Z79.01 Long term (current) use of anticoagulants; Z82.3 Family history of stroke; Z82.49 Family history of ischemic heart disease and other diseases of the circulatory system; Z83.3 Family history of diabetes mellitus; Y99.8 Other external cause status
CPT/HCPCS: 36415; 70450; 71045; 80048; 80053; 81001; 82088; 82570; 82962; 83036; 83735; 84132; 84156; 84244; 85025; 87040; 87086; 87088; 87186; 87426; 93005; 94660; 97163; 97530; G0378; J0696; J1335; J1815; J3480; J3490

== ENCOUNTER 2023-10-11 08:44 | Inpatient (IN) | payer BC, MEDICAID, OTHER ==
[~2023-10-11] VITALS: Ht 175.3 cm; Wt 84.5 kg
[~2023-10-11 08:44] MED LIST changes: -ESCI-34 PO; +ESCI1TAB37 PO; -LISI-716 PO; +LISI10TA34 PO; +SPIR25TA PO
[2023-10-11 08:46] VITALS: PULSE 77; RESP 14; O2SAT 98
[2023-10-11] MEDS: D5W/SOD CHLO 0.9% 1,000 ML IV ONE (09:17)
[2023-10-11] MEDS: ONDANSETRON HCL 4 MG/2 ML VIAL IV ONE (09:17)
[2023-10-11 09:28] LABS: Basophils # (auto) 0 10 ^3/uL (0-0.2); Basophils % (auto) 0.2 % (0.0-2.0); Eosinophils # (auto) 0.6 10 ^3/uL (0-0.8); Eosinophils % (auto) 5.3 % (0.0-7.0); Hematocrit 42.2 % (41.0-53.0); Lymphocytes # (auto) 1.3 10 ^3/uL (0.4-5.4); Lymphocytes % (auto) 12.1 % (10.0-50.0); Mean Corpuscular Hemoglobin 29.6 pg (28.0-32.0); Mean Corpuscular Hgb Conc. 33.1 g/dL (32.0-36.0); Mean Corpuscular Volume 89.4 fL (80.0-100.0); Monocytes # (auto) 0.5 10 ^3/uL (0-1.3); Monocytes % (auto) 4.9 % (0.0-12.0); Neutrophils # (auto) 8.2 10 ^3/uL (1.6-8.6); Neutrophils % (auto) 77.5 % (37.0-80.0); Red Blood Cells 4.72 10^6/uL (4.5-5.90); Red Cell Distribution Width 14.6 % (11.8-14.3); White Blood Cell 10.6 10^3/uL (4.4-10.8)
[2023-10-11 09:47] LABS: Alanine Aminotransferase 12 U/L (7-40); Albumin 4.1 g/dL (3.2-4.8); Alkaline Phosphatase 107 U/L (46-116); Anion Gap 5 (5-15); Aspartate Aminotransferase 29 U/L (13-40); BUN/Creatinine Ratio 10.6 (10.0-20.0); Bilirubin, Total 0.5 mg/dL (0.2-1.0); Blood Urea Nitrogen 12 mg/dL (9-23); Calcium 9.9 mg/dL (8.5-10.1); Carbon Dioxide 26 mmol/L (20-30); Chloride 108 mmol/L (98-107); Glucose 83 mg/dL (74-106); Sodium 139 mmol/L (136-145); Total Protein 7.2 g/dL (5.7-8.2)
[2023-10-11 10:09] LABS: Lipase 24 U/L (12-53)
[2023-10-11 11:00] LABS: Urine Bacteria FEW /hpf (None Seen); Urine Blood Negative /uL (Negative); Urine Clarity HAZY (Clear); Urine Color Yellow (Yellow); Urine Mucus FEW (None Seen); Urine Protein, UAD TRACE (Negative); Urine Specific Gravity 1.025 (1.001-1.035); Urine Urobilinogen Normal (Negative); Urine WBC 2 /hpf (0 - 3)
[2023-10-11] MEDS ORDERED: MORPHINE SULFATE INJ 2 MG/ml SYRG IV PRN (14:15)
[2023-10-11] MEDS ORDERED: DEXTROSE (50%) 50ML SYRG IV PRN (14:15)
[2023-10-11] MEDS ORDERED: DOCUSATE SOD 100 MG CAP PO PRN (14:15)
[2023-10-11] MEDS ORDERED: ONDANSETRON HCL 4 MG/2 ML VIAL IV PRN (14:15)
[2023-10-11] MEDS ORDERED: SODIUM CHLORIDE 0.9% 1,000 ML IV SCH (14:15)
[2023-10-11 17:00] VITALS: BP 137/97; PULSE 71; RESP 20; TEMP 98.3; O2SAT 99
[2023-10-11] MEDS: InsuLIN REG 1unit/0.01ml Soln (100units/ml) SC SCH (17:00)
[2023-10-11] MEDS: ACCU-CHEK COMFORT CURVE STRIP VI SCH (17:02)
[2023-10-11] MEDS: DICYCLOMINE HCL 10 MG CAP PO SCH (17:46)
[2023-10-11 20:59] VITALS: BP 138/102; PULSE 76; RESP 22; TEMP 98; O2SAT 100
[2023-10-11] MEDS: ATORVASTATIN 20 MG TAB PO SCH (21:24)
[2023-10-11] MEDS: APIXABAN 5 MG TAB PO SCH (21:24)
[2023-10-12 04:59] VITALS: BP 134/93; PULSE 79; RESP 20; TEMP 98.1; O2SAT 96
[2023-10-12 06:16] LABS: Basophils # (auto) 0 10 ^3/uL (0-0.2); Basophils % (auto) 0.4 % (0.0-2.0); Eosinophils # (auto) 0.8 10 ^3/uL (0-0.8); Eosinophils % (auto) 10.8 % (0.0-7.0); Hematocrit 40.9 % (41.0-53.0); Hemoglobin 13.4 g/dL (13.5-17.5); Lymphocytes % (auto) 27.7 % (10.0-50.0); Mean Corpuscular Hemoglobin 29.3 pg (28.0-32.0); Mean Corpuscular Hgb Conc. 32.8 g/dL (32.0-36.0); Mean Corpuscular Volume 89.5 fL (80.0-100.0); Monocytes # (auto) 0.5 10 ^3/uL (0-1.3); Monocytes % (auto) 6.9 % (0.0-12.0); Neutrophils % (auto) 54.2 % (37.0-80.0); Nucleated Red Blood Cells % 0.2 %; Red Blood Cells 4.56 10^6/uL (4.5-5.90); Red Cell Distribution Width 14.3 % (11.8-14.3); White Blood Cell 7.4 10^3/uL (4.4-10.8)
[2023-10-12] MEDS: EMPAGLIFLOZIN 10 MG TAB PO SCH (06:20)
[2023-10-12 06:46] LABS: Albumin 3.6 g/dL (3.2-4.8); Alkaline Phosphatase 85 U/L (46-116); Anion Gap 5 (5-15); Aspartate Aminotransferase 14 U/L (13-40); BUN/Creatinine Ratio 8.1 (10.0-20.0); Blood Urea Nitrogen 9 mg/dL (9-23); Calcium 8.9 mg/dL (8.7-10.4); Carbon Dioxide 25 mmol/L (20-30); Chloride 110 mmol/L (98-107); Glucose 74 mg/dL (74-106); Potassium 4.5 mmol/L (3.5-5.1); Sodium 140 mmol/L (136-145)
[2023-10-12 06:47] LABS: Total Protein 6.1 g/dL (5.7-8.2)
[2023-10-12 06:53] LABS: Bilirubin, Total 0.7 mg/dL (0.2-1.0)
[2023-10-12 06:57] LABS: Alanine Aminotransferase 9 U/L (7-40)
[2023-10-12 08:53] VITALS: BP 137/92; PULSE 76; RESP 18; TEMP 97.6; O2SAT 98
[2023-10-12] MEDS: LISINOPRIL 5 MG TAB PO SCH (09:43)
[2023-10-12] MEDS: CITALOPRAM HYDROBR 20 MG TAB PO SCH (09:44)
[2023-10-12] MEDS: ATENOLOL 25 MG TAB PO SCH (09:44)
[2023-10-12 13:00] VITALS: BP 127/89; PULSE 79; RESP 16; TEMP 97.9; O2SAT 98
[2023-10-12] MEDS ORDERED: DIPHENOXYLATE W/ATROPINE 2.5 MG TAB PO PRN (15:45)
[2023-10-12 16:59] VITALS: BP 127/81; PULSE 79; RESP 20; TEMP 97.8; O2SAT 95
[2023-10-12] MEDS: ALPRAZolam 0.5 MG TAB PO PRN (17:00)
[2023-10-12 20:00] VITALS: BP 115/80; PULSE 71; RESP 18; TEMP 97.8; O2SAT 99
[2023-10-12 22:00] VITALS: BP 115/80; PULSE 71; RESP 18; TEMP 97.8; O2SAT 99
[2023-10-13 05:00] VITALS: BP 112/78; PULSE 80; RESP 18; TEMP 98; O2SAT 100
[2023-10-13 08:15] VITALS: BP 115/80; PULSE 81; RESP 18; TEMP 97.7; O2SAT 98
[2023-10-13 13:21] VITALS: BP 122/86; PULSE 64; RESP 20; TEMP 98.4; O2SAT 96
[2023-10-13] MEDS ORDERED: METR-344 PO (16:54)
[2023-10-13] MEDS ORDERED: CIPR-173 PO (16:54)
== END 2023-10-13 18:13 | disposition home or self-care (01) | DRG 465 ==
LOC: EDBD 08:44 → EDUNIT# 08:44 → ER 08:44 → OVERFLOW 14:14 → EAST 19:13
PROVIDERS: ADMIT Nurse Practitioner Family; ATTEND Nurse Practitioner Family
DX: N20.0 Calculus of kidney (principal); I48.20 Chronic atrial fibrillation, unspecified; E86.0 Dehydration; I69.354 Hemiplegia and hemiparesis following cerebral infarction affecting left non-dominant side; E16.2 Hypoglycemia, unspecified; T38.3X5A Adverse effect of insulin and oral hypoglycemic [antidiabetic] drugs, initial encounter; E78.5 Hyperlipidemia, unspecified; F41.9 Anxiety disorder, unspecified; I10 Essential (primary) hypertension; Z95.0 Presence of cardiac pacemaker; Z87.442 Personal history of urinary calculi; Z82.3 Family history of stroke; Z83.3 Family history of diabetes mellitus; Z82.49 Family history of ischemic heart disease and other diseases of the circulatory system; Z79.01 Long term (current) use of anticoagulants
CPT/HCPCS: 36415; 74176; 80053; 81001; 82962; 83036; 83605; 83690; 85025; 87040; 87077; 87186; 93005; G0378; J2405